=== PATIENT | male | born 1950 | race Caucasian/White ===

== ENCOUNTER 2017-01-15 18:16 | Inpatient (IN) | payer SELFPAY ==
[~2017-01-15] VITALS: Ht 170.2 cm; Wt 80.1 kg
--- NOTE | ~2017-01-15 | ECH ---
Transthoracic Echocardiography Report (TTE) Demographics Patient Name THONY JOLLY Date of Study 01/17/2017 Patient Number [id number] Visit Number [id number] Date of 1950 Room Number 409 Accession Number [id number] Gender Male Age 66 year(s) Referring Estrella Ferguson MD Environmental Studies Professor Kirti Berrios [facility] Physician Jonny Hahn MD Physician Interpreting King Roe Spence MD Warp Changer Physician Supervising Ordering Physician Estrella Ferguson MD, MD/[facility] Nurse Stress Cell Lead Conclusions Summary Technically fair exam. The estimated left ventricular ejection fraction is 55-60%. Mild segmental wall motion abnormalities noted. Bubble study was done, there is no evidence for a PFO or ASD. No significant valvular abnormalities. Procedure Type of Study TTE procedure:Echo Complete SF. Procedure Date Date: 01/17/2017 Start: 08:01 AM Technical Quality: Fair Indications:CVA and Atrial fibrillation. Appropriate Use Criteria: 9 Contrast Medium: Bubble Study. Height: 67 inches Weight: 182 pounds BSA: 1.94 m Rhythm: Atrial fibrillation HR: 67 bpm BP: 112/73 mmHg M-Mode/2D Measurements LV Diastolic Dimension: 4.27 cm LV Systolic Dimension: 2.46 cm LV Septum Diastolic: 0.9 cm LV PW Diastolic: 0.81 cm AO Root Dimension: 2.61 cm Cardiac Output: 3.32 l/min LA Dimension: 3.32 cm Cardiac Index: 1.71 l/min*m LA volume index: 32 ml/m LVOT: 1.88 cm RV Base: 3.77 cm LVOT VTI: 17.87 cm RV Mid: 2.57 cm LV Stroke volume: 49.58 ml TAPSE: 1.35 cm LV Stroke volume index: 25.56 ml/m TDI-S': 0.7 cm/s Doppler Measurements AV Peak Velocity: 1.12 m/s MV Peak E-Wave: 1.2 m/s AV Peak Gradient: 5.02 mmHg AV Mean Gradient: 2.68 mmHg LVOT Peak Velocity: 0.85 m/s AV Area (Continuity):2.11 cm PV Peak Velocity: 1.23 m/s TR Velocity:2.31 m/s PV Peak Gradient: 6.09 mmHg TR Gradient:21.3 mmHg Estimated PASP: 24.3 mmHg Estimated RAP:3 mmHg Estimated RVSP: 24 mmHg RA Area: 15.9 cm Findings Left Ventricle The left ventricle is normal in size . Diastolic function indeterminate due to patient's arrhythmia. Right Ventricle Right ventricle seen best in subcostal views, appears normal size and function. Left Atrium Normal left atrial size. Bubble study was done, there is no evidence for a PFO or ASD. Right Atrium Normal right atrial size. Mitral Valve Normal mitral valve structure and function. Mild mitral regurgitation by color Doppler. Aortic Valve Normal aortic valve structure and function. Tricuspid Valve Normal tricuspid valve structure and function. Mild tricuspid regurgitation by color Doppler.Estimated pulmonary pressures within normal range. Pulmonic Valve Normal pulmonic valve structure and function. Pericardial Effusion No evidence of pericardial effusion. Miscellaneous Visualized portions of the aortic root and ascending aorta appear normal in size. Pleural Effusion No evidence of pleural effusion. Contractility Score LV regional wall motion:(0-Non visualized 1-Normal 2-Hypokinesis 3-Akinesis 4-Dyskinesis 5-Aneurysm) Signature
[2017-01-19] MEDS ORDERED: NEURONTIN DPS300 MG PO (18:17)
[2017-01-19] MEDS ORDERED: ASA325 MG PO (18:17)
[2017-01-19] MEDS ORDERED: FENOFIBRATE160 MG PO (18:18)
[2017-01-19] MEDS ORDERED: GLUCOPHAGE-DPS500 MG PO (18:18)
[2017-01-19] MEDS ORDERED: LIPITOR40 MG PO (18:18)
[2017-01-19] MEDS ORDERED: COUMADIN5 MG PO (18:19)
--- NOTE | 2017-01-22 08:40 | ER ---
ADMIT: 01/15/2017 RM/LOC: 409 [facility] MR#: [id number] [id number] [place], [place] [address] FLY JOLLYDEE Jolene [address] [place] [phone] Emergency Room Report SEX: M AGE: 66 : 1950 DATE: 01/15/2017 This 66-year-old gentleman, awoke this morning around 6:30 with left-sided weakness and some slurring of the speech. Uncertain why he did not come into the Emergency Department until late in the evening, but he presented with same left-sided weakness and slurring of speech. He denied headache, denied any prior symptoms. His past history is for hyperlipidemia for which he takes Lipitor. He also gets medicines filled down in [place], but he cannot recall what they are for. He has seen Dr. De La Rosa and he is currently complaining of weakness as mentioned above. PHYSICAL EXAMINATION: GENERAL: Reveals a 66-year-old gentleman, who is alert and appropriate. CARDIOVASCULAR: Regular rate. Irregular rhythm. LUNGS: Clear to auscultation. ABDOMEN: Soft. NEUROLOGIC ASSESSMENT: There is a slight left facial droop. There is 3/5 strength in the left upper extremity, 5/5 in right upper extremity, likewise a 3/5 strength in the lower extremity on the left and 5/[address] of the head showed ischemic changes suggestive of CVA on the right cerebral hemisphere. EKG showed atrial fibrillation. At time of this dictation, labs are pending. The patient will be admitted with CVA and AFib. Daryn Mathews MD/ sean JOB #: [id number] CC: Maxi De La Rosa MD, Attending Physician Maxi De La Rosa MD, Family Physician
--- NOTE | 2017-01-28 11:55 | CO ---
ADMIT: 01/15/2017 RM/LOC: 409 [facility] MR#: [id number] [address] [address] THONY JOLLY [address] [place] [phone] Consultation SEX: M AGE: 66 : 1950 DATE OF CONSULTATION: 01/17/2017 ATTENDING PHYSICIAN: Maxi De La Rosa CONSULTING PHYSICIAN: Natacha Fuller MD REASON FOR CONSULT: Atrial fibrillation with recent stroke. This is Mar Pacheco RN, scribing for Dr. Jovani Fuller. HISTORY OF PRESENT ILLNESS: Thony is a pleasant 66-year-old gentleman, I have been asked to see in Cardiology consultation for Dr. De La Rosa for a history of atrial fibrillation with history of stroke. He follows with physicians in [place] but lives here. He does speak [place]iny[place]. He has history of atrial fibrillation which I am unsure is paroxysmal or permanent. He also has history of peripheral vascular disease and reports that he recently had a circulation surgery in [place] one 09/28 of this year. He does have a scar in his right flank, I am unsure what type of surgery that was. He is treated for hyperlipidemia with Lipitor at home. Thony reports that he has been treated for atrial fibrillation with aspirin by his doctors in [place]. Mr. Jolly presented two days ago after having an episode where he had left facial droop, slurred speech, and left hemiparesis. He reports this lasted for several hours but then resolved. On arrival to the emergency room, his symptoms had already resolved, but workup included MRI which showed a right MCA CVA. He has been placed on Coumadin as well as heparin in addition to his aspirin and Lipitor. He denies any issues currently including chest pain, shortness of breath, palpitations, presyncope, or peripheral edema. He uses all four extremities. Echocardiogram was performed showing no evidence of a PFO or ASD on bubble study. He did have normal ejection fraction. He has had carotid ultrasound which showed mild bilateral disease which was confirmed on MRA of his neck as well. PAST MEDICAL HISTORY: 1. Atrial fibrillation. 2. Peripheral vascular disease. 3. Hyperlipidemia. PAST SURGICAL HISTORY: Vascular disease in [place], unknown. ALLERGIES: NO KNOWN MEDICATION ALLERGIES. MEDICATIONS: Current medications include: 1. Aspirin 325 daily. 2. Coumadin 5 daily. 3. Lipitor 20 at bedtime. 4. Protonix 40 daily. 5. Heparin drip per protocol. ADMIT: 01/15/2017 RM/LOC: 409 [facility] MR#: [id number] [address] [address] THONY JOLLY [address] [place] [phone] Consultation SEX: M AGE: 66 : 1950 FAMILY HISTORY: Denies family history of heart disease or stroke. SOCIAL HISTORY: Thony is . He has occasional alcohol use. He denies any caffeine or drug use or tobacco use. REVIEW OF SYSTEMS: GENERAL: Denies fatigue, fever, chills, sweats, rash, or weight loss. EYES: Denies double vision, blurred vision, cataracts, or glaucoma. ENT: Denies hearing loss or problems with nose, mouth or throat. PULMONARY: Denies cough, sputum production, asthma, emphysema or bronchitis. Denies snoring loudly, wakefulness at night, or fatigue upon awakening. GASTROINTESTINAL: Denies heartburn or difficulty swallowing. No change in bowel habits. Denies dark or bloody stools. No history of ulcers, hiatal hernia, or gallbladder or liver disease. GENITOURINARY: Denies dysuria, hematuria, nocturia, urinary tract infection, or kidney stones. Denies history of renal insufficiency or failure. MUSCULOSKELETAL: Denies history of arthritis or gout. Denies muscle or joint pains. ENDOCRINE: Denies history of thyroid dysfunction or diabetes. HEMATOLOGIC: Denies history of anemia, easy bruising, or cancer. NEUROLOGIC: Recent right MCA stroke. Denies chronic headaches, dizziness, syncope, seizures, or numbness or tingling. PSYCHIATRIC: Denies history of mental illness or feelings of depression. PHYSICAL EXAMINATION: VITAL SIGNS: Blood pressure 120/65, heart rate 64, respirations 16, temperature 97.7, oxygenation 91% on room air. SKIN: [place], warm and dry. EYES: Sclerae clear. No xanthelasmas. ENT: Oral mucosa is pink and moist. No jugular venous distention or carotid bruits. CHEST: Respirations are even and unlabored. Lungs are clear to auscultation. HEART: Irregularly irregular. ABDOMEN: Soft and nontender. MUSCULOSKELETAL: Gait is normal. EXTREMITIES: Peripheral pulses palpable. No clubbing, cyanosis or edema. PSYCHIATRIC: Alert and oriented. Mood and affect are appropriate. DIAGNOSTIC DATA: Echo on 01/17/2017, showed ejection fraction of 55% to 60% with normal wall motion. Negative bubble study for PFO or ASD. Carotid ultrasound 01/16, showed mild bilateral internal carotid artery disease. MRI and MRA of head on 01/16, showed no focal high-grade stenosis in carotids, right mid cerebral artery distribution infarct. Sodium 146, potassium 4.4, BUN 16, creatinine 1.0, glucose 106, TSH 0.98, total cholesterol 97, triglycerides 87, HDL 26, LDL 54. INR 1.21. White blood cell count 7.2, hemoglobin 12.4, hematocrit 29.6, and platelets 193. ASSESSMENT AND PLAN: ADMIT: 01/15/2017 RM/LOC: 409 [facility] MR#: [id number] [address] [address] THONY JOLLY [address] [place] [phone] Consultation SEX: M AGE: 66 : 1950 1. Atrial fibrillation. 2. Cerebrovascular accident, resolved. 3. Peripheral vascular disease. 4. Hyperlipidemia. He has likely chronic atrial fibrillation. He has good rate control off any rate control medications. I agree with Coumadin per primary care physician. He seems asymptomatic from his atrial fibrillation. I would recommend rate control strategy at this point. Thank you for the consultation. "I have read and agree with the documentation that has been completed regarding this visit. By signing this record, I attest that the documentation was completed in my physical presence and is an accurate record of the encounter." Mar Pacheco RN / Natacha Fuller MD / chandanal JOB #: [id number] CC: Maxi De La Rosa, Attending Physician Maxi De La Rosa, Family Physician
--- NOTE | 2017-01-31 07:51 | HP ---
ADMIT: 01/15/2017 RM/LOC: 409 [facility] MR#: [id number] [facility]#: [id number] [id number] [place], [place] [address] THONY JOLLY Jolene [address] [place] [phone] History and Physical SEX: M AGE: 66 : 1950 DATE OF SERVICE: CHIEF COMPLAINT: Left-sided weakness. HISTORY OF PRESENT ILLNESS: This is a 66-year-old male with past medical history significant for vascular disease, atrial fibrillation, and hyperlipidemia, admitted with a right MCA ischemic stroke. The patient reports that around 4:30 this afternoon he began slurring his speech, and family noticed that he had some left-sided facial droop. He is also unable to use his left hand. Of note, the ER states that he told them that symptoms began around 6:30 this morning. The patient states that the symptoms lasted several hours, but are now resolved. He has no history of stroke or coronary artery disease. He is unsure of his medications, which he does get from [place]. He does think that he has a blood thinner that he takes, but again it is unsure. He was aware that he had some vascular disease because he had a vascular surgery about 3 months ago on his right flank, although he is not really sure what they did. He also thinks that he takes a medicine for his cholesterol. He currently denies any chest pain, shortness of breath, headache, lower extremity edema, or left-sided weakness. In the ER, CT of his head did show a right middle cerebral artery infarct and no hemorrhage. PAST MEDICAL HISTORY: 1. Hyperlipidemia. 2. Atrial fibrillation. PAST SURGICAL HISTORY: Some sort of vascular surgery on his right flank and some sort of surgery on his right occiput, although that was when he was a child, and he is unsure what they did. MEDICATIONS: Unknown. ALLERGIES: NONE. SOCIAL HISTORY: He denies any tobacco or illegal drug use, but does drink alcohol occasionally. FAMILY HISTORY: Unknown. REVIEW OF SYSTEMS: A 10-point review of systems was reviewed and negative other than that stated above in the HPI. PHYSICAL EXAMINATION: VITAL SIGNS: Blood pressure 118/81, pulse 71, respirations 16, temp 97.6, and saturating 97% on room air. GENERAL: He is alert and oriented x3, in no acute distress. HEART: Irregularly irregular. No bruits. No jugular venous distention. LUNGS: Clear. ABDOMEN: Soft, nontender, nondistended with positive bowel sounds. He does have a scar on the right side. EXTREMITIES: No edema. ADMIT: 01/15/2017 RM/LOC: 409 [facility] MR#: [id number] [address] [address] THONY JOLLY [address] [place] [phone] History and Physical SEX: M AGE: 66 : 1950 NEUROLOGIC: Right left upper and lower extremities show 5/5 muscle strength. His cranial nerves II through XII are intact. He has brisk reflexes. LABORATORY DATA: Sodium 136, potassium 4.1, creatinine 1.2. Hemoglobin 12.8, white count 9, and platelets 197. BNP was 1850. INR is 1.21. CT of his head showed a right middle cerebral artery infarct. Chest x-ray showed mild cardiomegaly. ASSESSMENT AND PLAN: 1. Right middle cerebral artery ischemic stroke. Started him on aspirin and Plavix. His symptoms are currently resolved. We will plan for an echo and MRI and carotid Dopplers tomorrow. PT, OT, and speech will also see him. He did not have any Neurology provider this week, so we will have to hold off on a neurology consult. 2. Atrial fibrillation. Again, we will plan for an echo tomorrow. We will need to determine what if any anticoagulation he is on and start him on a form of anticoagulation for his atrial fibrillation. He does have a CHADS2 score of at least 2, but could be higher given his unknown medical history. His rate is currently controlled. 3. Hyperlipidemia. We will check a lipid panel tomorrow as well as a hemoglobin A1c. 4. Vascular disease. Destinee Garcia DO Resident / Harsh Garzon MD / sean JOB #: [id number] CC: Maxi De La Rosa, Attending Physician Mxai De La Rosa, Family Physician
--- NOTE | 2017-02-02 17:20 | CO ---
ADMIT: 01/15/2017 RM/LOC: 409 [facility] MR#: [id number] [address] [address] RIK THONY Jolene [address] [place] [phone] Consultation SEX: M AGE: 66 : 1950 DATE OF CONSULTATION: 01/17/2017 ATTENDING PHYSICIAN: Maxi De La Rosa CONSULTING PHYSICIAN: Ramo Jean MD REASON FOR CONSULTATION: Ischemic stroke. HISTORY OF PRESENT ILLNESS: The patient is a 66-year-old gentleman with past medical history as below, who developed symptoms of left-sided weakness and difficulty speaking on 01/15/2017, around 6:00 a.m. in the morning. It took him about 12 hours to get to the hospital. Therefore, tPA was not considered. The MRI was positive for right temporal ischemic stroke of moderate size. The patient was noted to be in atrial fibrillation and heparin drip and Coumadin was started. The patient's symptoms cleared almost entirely. PAST MEDICAL HISTORY: Significant for peripheral vascular disease, atrial fibrillation, diabetes mellitus, hyperlipidemia. PAST SURGICAL HISTORY: Some vascular surgery. MEDICATIONS: On outpatient basis reviewed in electronic medical record. Reportedly, he was on: 1. Aspirin 81 mg. 2. Gabapentin. 3. Ketoprofen. 4. Bezafibrate. 5. Pentoxifylline. SOCIAL HISTORY: The patient used to smoke about 15 years ago. Occasional alcohol use. FAMILY HISTORY: No history of heart disease or stroke. ALLERGIES: NO KNOWN DRUG ALLERGIES. REVIEW OF SYSTEMS: All systems reviewed, negative except as per HPI. Positive are following. NEUROLOGIC: Difficulty talking and left-sided weakness. CARDIOVASCULAR: Peripheral vascular disease and atrial fibrillation. PHYSICAL EXAMINATION: VITAL SIGNS: Temperature 98.3, heart rate 79, respirations 20, blood pressure 122/71, saturation 90% on room air. GENERAL: The patient appears to be in no acute discomfort. HEAD: Normocephalic. NECK: Supple. CHEST: Normal respiratory raises. CARDIOVASCULAR: Irregular. ADMIT: 01/15/2017 RM/LOC: 409 [facility] MR#: [id number] [address] [address] THONY JOLLY [address] [place] [address] Consultation SEX: M AGE: 66 : 1950 EXTREMITIES: No clubbing or cyanosis. NEUROLOGICAL EXAMINATION: The patient is awake, alert, and appropriately oriented. There is no difficulty with naming, repeating. He is fluent. There is some mild dysarthria noted. Cranial nerve examination; visual rizzo are intact. Extraocular muscles intact. Pupils equal, reactive. Facial sensation is normal. Face is mildly asymmetric with mild left-sided facial weakness. Hearing to voice is normal. Uvula midline. Palatal arch is symmetric. Shoulder shrug symmetric. Tongue is midline, freely moveable. Motor examination reveals full strength throughout. No drift. Fine motor movements intact. Normal tone. Sensory; nonlateralizing to touch. Reflexes are brisk and symmetric in upper extremities and knees, reduced in ankles. Toes are downgoing bilaterally. Coordination; [id number]-[id number] intact. Gait; cautious but stable. LABORATORY DATA: Reviewed in the electronic medical record as well as MRI, MRA reviewed. MRA of the head was okay. MRI showed right temporal stroke, which is ischemic. Carotids where fine on Doppler. A1c was 7.1. LDL was normal. ASSESSMENT: 1. Ischemic stroke. 2. Atrial fibrillation. 3. Peripheral vascular disease. 4. Diabetes. 5. Hyperlipidemia. PLAN: I think it is safer to discontinue heparin drip as it is commonly associated with hemorrhagic conversion of the ischemic stroke, especially if the size is moderate as in his situation. It is okay to continue with the Coumadin as its effect will show in next several days. I will obtain a CT scan of the head tomorrow to ensure there was no even minimal hemorrhagic conversion. Thank you very much for this interesting consultation. Ramo Jean MD/ sean JOB #: [id number] CC: Maxi De La Rosa, Attending Physician Maxi De La Rosa, Family Physician
--- NOTE | 2017-02-10 18:18 | DS ---
ADMIT: 01/15/2017 RM/LOC: 409 [facility] MR#: [id number] [id number] [place], [place] [address] JOLLY THONY Jolene [address] [place] [phone] Discharge Summary SEX: M AGE: 66 : 1950 ADMISSION DATE: 01/15/2017 DISCHARGE DATE: 01/18/2017 DISCHARGE DIAGNOSES: 1. Right middle cerebral artery ischemic stroke. 2. Atrial fibrillation. 3. Hyperlipidemia. 4. Peripheral vascular disease. 5. Diabetes mellitus. CONSULTS: 1. Urology. 2. Cardiology. HISTORY OF PRESENT ILLNESS: This is a 66-year-old male who mainly resides in [place], here visiting family, who came in with complaints of slurring speech and left-sided facial droop. This had gone on for several hours before he came to the ER. By the time he got to the ER, most of his symptoms had completely resolved. A CT of his head did show a right middle cerebral artery infarct and no hemorrhage. He denied any history of stroke or coronary artery disease. He did know that he had high cholesterol and was taking Lipitor that he got from [place], but was unsure of what other medications that he had. HOSPITAL COURSE: The patient was admitted and started on aspirin and a heparin drip per stroke protocol. He had an echo that was performed that showed an ejection fraction of 55-60% and a negative bubble study. Carotids were performed that showed mild bilateral stenosis. An MRI and MRA of his head were done that showed the middle cerebral artery infarct, but no further damage. Neurology did see him and suggested that the heparin be stopped and he was switched to Coumadin. The patient was evaluated by Physical Therapy and Occupational Therapy, and since most of his symptoms had resolved, he did well with therapy and was thought to be able to be discharged to home. The patient did state that he planned to return to [place]. He was then allowed to be discharged on 01/18/2015 and was started on Coumadin for anticoagulation and continued on aspirin as well. Discharge medications: 1. Aspirin 325 mg daily. 2. Gabapentin 300 mg b.i.d. 3. Bezafibrato 160 mg daily. 4. Lipitor 40 mg daily. 5. Metformin 500 mg b.i.d. 6. Coumadin 5 mg daily. Destinee Garcia DO Resident / Maxi De La Rosa MD / alirio JOB #: [id number] CC: Maxi De La Rosa MD, Attending Physician ADMIT: 01/15/2017 RM/LOC: 409 [facility] MR#: [id number] [address] [address] THONY JOLLY [address] [address] Discharge Summary SEX: M AGE: 66 : 1950 Maxi De La Rosa MD, Family Physician
== END 2017-01-18 15:30 | disposition home or self-care (01) | DRG 65 ==
LOC: ER 18:16 → 4PCU 19:08
PROVIDERS: ADMIT Family Medicine
DX: I63.511 Cerebral infarction due to unspecified occlusion or stenosis of right middle cerebral artery (principal); G81.94 Hemiplegia, unspecified affecting left nondominant side; R47.81 Slurred speech; R29.810 Facial weakness; I48.2 Chronic atrial fibrillation; K21.9 Gastro-esophageal reflux disease without esophagitis; I73.9 Peripheral vascular disease, unspecified; E78.5 Hyperlipidemia, unspecified; E11.9 Type 2 diabetes mellitus without complications; Z79.82 Long term (current) use of aspirin; Z87.891 Personal history of nicotine dependence